=== PATIENT | female | born 1980 | race Caucasian/White ===

== ENCOUNTER 2018-07-04 17:48 | Emergency (ER) | payer OTHER, SELFPAY ==
[2018-07-04] MEDS ORDERED: Famotidine 20 MG TAB ONE (18:04)
[2018-07-04] MEDS ORDERED: Sterile Water 10 ML ONE (18:04)
[2018-07-04] MEDS ORDERED: methylPREDNISolone Sod Succ/PF 125 MG/2 ML VIAL ONE (18:04)
== END 2018-07-04 18:40 ==
LOC: SCSER 17:48
DX: T78.40XA Allergy, unspecified, initial encounter (principal); F20.9 Schizophrenia, unspecified; F41.9 Anxiety disorder, unspecified; F32.9 Major depressive disorder, single episode, unspecified; F17.210 Nicotine dependence, cigarettes, uncomplicated; Z79.899 Other long term (current) drug therapy
CPT/HCPCS: 99283; A4216; J2930